=== PATIENT | female | born 2000 | race Hispanic/Latino ===

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

== ENCOUNTER 2023-05-12 13:42 | Emergency (ER) | payer OTHER, SELFPAY | END 2023-05-12 16:01 | disposition home or self-care (01) | LOC: ERS 13:42 | DX: R04.2 Hemoptysis (principal); R05.1 Acute cough | CPT/HCPCS: 71046 ==

== ENCOUNTER 2024-02-12 12:37 | Emergency (ER) | payer SELFPAY ==
[2024-02-12 13:13] LABS: #Basophils Less than 0.03 10x3/uL (0.0-0.2); %Basophils 0.2 % (0.0-1.0); %Eosinophils 0.6 % (0.0-10.0); %Lymphocytes 35.8 % (21.0-51.0); %Monocytes 6.5 % (0.0-10.0); %Neutrophils 56.4 % (42.0-75.0); Hematocrit 37.7 % (36.0-47.0); Hemoglobin 12.5 g/dL (12.0-16.0); Mean Corpuscular HGB CONC 33.2 g/dL (32.0-36.0); Mean Corpuscular Hemoglobin 31.2 pg (27.0-31.0); Mean Platelet Volume 7.6 fL (7.4-10.4); Platelet Count 342 10x3/uL (130-400); RBC Distribution Width 11.9 % (11.5-14.5); Red Blood Cell (RBC) Count 4.01 mill/uL (4.20-5.40)
[2024-02-12 15:31] LABS: Bacteria/HPF None Seen HPF (None Seen); Bilirubin Negative (Negative); Blood, Urine Negative (Negative); CAUTI Indications for Culture Pelvic or flank pain; Clarity Clear (Clear); Glucose, Urine (Dipstick) Normal (Negative); Ketone, Urine 20 mg/dL (Negative); Leukocyte Negative Leu/uL (Negative); Nitrite Negative (Negative); Protein, Urine (Dipstick) Negative (Neg-Trace); RBC/HPF 0-3 HPF (0-3); Specific Gravity, Urine 1.015 (1.002-1.036); Urobilinogen Normal mg/dL (Less than 2); WBC/HPF 0-3 HPF (0-3)
[2024-02-12 15:33] LABS: Urine Culture Reflex No No
== END 2024-02-12 15:40 | disposition home or self-care (01) ==
LOC: ERS 12:37
DX: O99.891 Other specified diseases and conditions complicating pregnancy (principal); R10.30 Lower abdominal pain, unspecified; Z3A.01 Less than 8 weeks gestation of pregnancy; Z75.8 Other problems related to medical facilities and other health care; Z87.891 Personal history of nicotine dependence
CPT/HCPCS: 36415; 76801; 81001; 84702; 85025

== ENCOUNTER 2024-06-03 21:59 | Emergency (ER) | payer SELFPAY | END 2024-06-04 00:16 | disposition home or self-care (01) | LOC: ERS 21:59 | DX: L02.415 Cutaneous abscess of right lower limb (principal); Z87.891 Personal history of nicotine dependence | CPT/HCPCS: 99282 ==

== ENCOUNTER 2024-07-03 22:13 | Emergency (ER) | payer SELFPAY ==
[2024-07-03] MEDS ORDERED: Acetaminophen 500 MG TAB ONE (22:36)
[2024-07-03 22:50] LABS: #Basophils Less than 0.03 10x3/uL (0.0-0.2); %Basophils 0.3 % (0.0-1.0); %Eosinophils 1.3 % (0.0-10.0); %Lymphocytes 40.5 % (21.0-51.0); %Monocytes 8.3 % (0.0-10.0); %Neutrophils 49.2 % (42.0-75.0); Hematocrit 39.3 % (36.0-47.0); Hemoglobin 13.1 g/dL (12.0-16.0); Mean Corpuscular HGB CONC 33.3 g/dL (32.0-36.0); Mean Corpuscular Hemoglobin 30.1 pg (27.0-31.0); Mean Corpuscular Volume 90.3 fL (78.0-98.0); Mean Platelet Volume 7.4 fL (7.4-10.4); Platelet Count 347 10x3/uL (130-400); RBC Distribution Width 11.9 % (11.5-14.5); Red Blood Cell (RBC) Count 4.35 mill/uL (4.20-5.40)
[2024-07-03 23:06] LABS: Bacteria/HPF Rare-Few HPF (None Seen); Bilirubin Negative (Negative); Blood, Urine Negative (Negative); CAUTI Indications for Culture Pregnancy; Clarity Clear (Clear); Glucose, Urine (Dipstick) Normal (Negative); Ketone, Urine Negative (Negative); Leukocyte Negative Leu/uL (Negative); Nitrite Negative (Negative); Protein, Urine (Dipstick) Negative (Neg-Trace); RBC/HPF 0-3 HPF (0-3); Specific Gravity, Urine 1.009 (1.002-1.036); Urobilinogen Normal mg/dL (Less than 2); WBC/HPF 0-3 HPF (0-3); pH, Urine 5.5 (5.0-9.0)
[2024-07-03 23:06] LABS: ALT (SGPT) 54 U/L (8-55); AST (SGOT) 38 U/L (5-34); Albumin 4.3 g/dL (3.5-5.0); Alkaline Phosphatase 77 U/L (40-110); Anion Gap 12 mmol/L (10-20); BUN (Urea Nitrogen) 9 mg/dL (7.0-18.7); Bilirubin, Total 0.3 mg/dL (0.2-1.2); Calc. Creatinine Clearance 0 mL/min (70-130); Calcium 9.7 mg/dL (7.8-10.44); Carbon Dioxide 23 mmol/L (22-29); Chloride 104 mmol/L (98-107); Estimated GFR 130; Globulin 3.5 g/dL (2.4-3.5); Glucose 102 mg/dL (70-105); Potassium 3.6 mmol/L (3.5-5.1); Protein, Total 7.8 g/dL (6.0-8.3); Sodium 135 mmol/L (136-145)
[2024-07-03 23:11] LABS: Urine Culture Reflex Yes Yes
== END 2024-07-03 23:59 | disposition home or self-care (01) ==
LOC: ERS 22:13
DX: O20.0 Threatened abortion (principal); Z3A.01 Less than 8 weeks gestation of pregnancy; Z87.891 Personal history of nicotine dependence
CPT/HCPCS: 36415; 76856; 80053; 81001; 84702; 85025; 87086

== ENCOUNTER 2024-07-05 12:01 | Emergency (ER) | payer SELFPAY | END 2024-07-05 14:17 | disposition home or self-care (01) | LOC: ERS 12:01 | DX: O99.891 Other specified diseases and conditions complicating pregnancy (principal); R10.9 Unspecified abdominal pain; Z3A.01 Less than 8 weeks gestation of pregnancy; Z01.89 Encounter for other specified special examinations; Z55.8 Other problems related to education and literacy; Z87.891 Personal history of nicotine dependence | CPT/HCPCS: 36415; 84702; 99283 ==